=== PATIENT | female | born 1980 | race Caucasian/White ===

== ENCOUNTER 2020-12-01 08:02 | Inpatient (IN) | payer BC ==
[~2020-12-01] VITALS: Ht 162.6 cm; Wt 97.5 kg
[2020-12-01 08:41] LABS: BASOPHILS % (AUTO) 0.3 % (0-1); EOSINOPHILS # (AUTO) 0.1 X10'3 (0-0.9); EOSINOPHILS % (AUTO) 0.9 % (0-6); HEMATOCRIT 45.7 % (35.0-45.0); HEMOGLOBIN 15.4 g/dl (12.0-16.0); LYMPHOCYTES # (AUTO) 1.4 X10'3 (1.1-4.8); LYMPHOCYTES % (AUTO) 18.7 % (21-51); MEAN CORPUSCULAR HEMOGLOBIN 28.6 PG (27.0-31.0); MEAN CORPUSCULAR HGB CONC 33.7 g/dL (33.0-36.5); MEAN PLATELET VOLUME 8.1 FL (7.4-10.4); MONOCYTES # (AUTO) 0.4 X10'3 (0-0.9); MONOCYTES % (AUTO) 5.2 % (2-12); NEUTROPHILS # (AUTO) 5.7 X10'3 (1.8-7.7); NEUTROPHILS % (AUTO) 74.9 % (42-75); PLATELET COUNT 317 X10'3 (140-440); RED BLOOD COUNT 5.37 X10'6 (4.20-5.60); WHITE BLOOD COUNT 7.6 X10'3 (4.5-11.0)
[2020-12-01 08:41] LABS: CLARITY,URINE CLOUDY (Clear); COLOR,URINE YELLOW (Yellow); GLUCOSE, URINE NEGATIVE (Neg); KETONES,URINE NEGATIVE (Neg); LEUKOCYTE ESTERASE ,URINE NEGATIVE (Neg); NITRITES, URINE NEGATIVE (Neg); OCCULT BLOOD,URINE SMALL (Neg); PH,URINE 5.5 (4.8-8.0); PROTEIN,URINE NEGATIVE (Neg)
[2020-12-01 08:42] LABS: URINE HCG NEGATIVE (NEG)
[2020-12-01 08:43] LABS: UA COLLECTION TYPE CLN CATCH MIDSTREAM
[2020-12-01 08:46] LABS: MUCUS STRANDS MANY /LPF (Neg); SQUAMOUS EPITHELIAL CELL,UR MANY /LPF (FEW)
[2020-12-01 08:47] LABS: BACTERIA,URINE 1+ /HPF (Neg); RBC,URINE 0-2 /HPF (0-2)
[2020-12-01 09:05] LABS: ALBUMIN 4.3 G/DL (3.4-5.0); ALKALINE PHOSPHATASE 311 IU/L (46-116); AMYLASE 581 U/L (25-115); ANION GAP 11 (8-16); BILIRUBIN,TOTAL 1.8 MG/DL (0.1-1.0); BLOOD UREA NITROGEN 14 MG/DL (7-18); BUN/CREATININE RATIO 17.5 (6.6-38.0); CALCIUM 9.5 MG/DL (8.5-10.1); CHLORIDE 102 MMOL/L (99-107); GLUCOSE 135 MG/DL (70-104); POTASSIUM 3.7 MMOL/L (3.5-5.1); SODIUM 141 MMOL/L (135-145); TOTAL CARBON DIOXIDE 27.9 MMOL/L (24-32); TOTAL PROTEIN 8.5 G/DL (6.4-8.2); eGFR 80 ML/MIN
[2020-12-01 09:06] LABS: ALANINE AMINOTRANSFERASE 1050 U/L (12-78); ASPARTATE AMINO TRANSFERASE 506 U/L (10-37)
[2020-12-01 09:31] LABS: LIPASE 5561 U/L (73-393)
[2020-12-01] MEDS ORDERED: normal saline 1000ml 1,000 ML IV ONE (10:05)
[2020-12-01] MEDS ORDERED: iohexol 300mg/ml 100ml inj. ONE (10:20)
--- NOTE | 2020-12-01 10:48 | NUR ---
pt to CT
[2020-12-01] MEDS ORDERED: potassium Cl 40MEQ/1/2NS 520ml 520 ML IV PRN ×2 (11:20)
[2020-12-01] MEDS ORDERED: magnesium 2GM in 50ml NS 50 ML IV PRN (11:20)
[2020-12-01] MEDS ORDERED: potassium Cl 20 mEq SR tablet PO PRN ×2 (11:20)
[2020-12-01] MEDS ORDERED: acetaminophen 325mg tablet PO PRN (11:20)
[2020-12-01] MEDS ORDERED: magnesium 4gm in 100ml NS 100 ML IV PRN (11:20)
[2020-12-01] MEDS ORDERED: magnesium Cl slow-release 64mg tablet PO PRN (11:20)
[2020-12-01] MEDS ORDERED: morphine 2 MG/ML inj. syringe IV PRN (11:20)
[2020-12-01] MEDS ORDERED: ondansetron/PF 4mg/2ml inj IV PRN (11:20)
[2020-12-01] MEDS ORDERED: DILT180C49 PO (12:31)
[2020-12-01] MEDS ORDERED: LISI1TAB29 PO (12:31)
[2020-12-01] MEDS: normal saline 1000ml 1,000 ML IV SCH ×2 (14:10→21:09)
[2020-12-01 14:50] VITALS: BP 150/86
[2020-12-01] MEDS ORDERED: OMEP-50 PO (16:38)
--- NOTE | 2020-12-01 18:35 | NUR ---
Patient in room [facility]. I have received report from Neda CARMICHAEL and had the opportunity to ask questions and assume patient care.
--- NOTE | 2020-12-01 19:25 | NUR ---
Patient in room [facility] 357B. I have received report from AMOL RODRIGUEZ FROM and had the opportunity to ask questions and assume patient care. Addendum: 12/01/20 at 1926 by Neda Juárez RN REPORT TAKEN AT 1440 NOT 1926
--- NOTE | 2020-12-01 19:26 | NUR ---
Problems reprioritized. Patient report given, questions answered & plan of care reviewed with AMOL MARIN.
[2020-12-01] MEDS: K and/or MAG REPLACEMENT MC SCH (19:36)
[2020-12-01 20:00] VITALS: BP 123/63
[2020-12-02] VITALS (20 sets, daily range): BP systolic 108–160; BP diastolic 50–93
[2020-12-02 06:15] LABS: BASOPHILS % (AUTO) 0.4 % (0-1); EOSINOPHILS # (AUTO) 0.1 X10'3 (0-0.9); EOSINOPHILS % (AUTO) 2.1 % (0-6); HEMATOCRIT 39.8 % (35.0-45.0); HEMOGLOBIN 13.3 g/dl (12.0-16.0); LYMPHOCYTES # (AUTO) 1.7 X10'3 (1.1-4.8); LYMPHOCYTES % (AUTO) 24.9 % (21-51); MEAN CORPUSCULAR HEMOGLOBIN 28.6 PG (27.0-31.0); MEAN CORPUSCULAR HGB CONC 33.4 g/dL (33.0-36.5); MEAN CORPUSCULAR VOLUME 85.8 FL (78-98); MEAN PLATELET VOLUME 8.3 FL (7.4-10.4); MONOCYTES # (AUTO) 0.4 X10'3 (0-0.9); MONOCYTES % (AUTO) 5.3 % (2-12); NEUTROPHILS # (AUTO) 4.5 X10'3 (1.8-7.7); NEUTROPHILS % (AUTO) 67.3 % (42-75); PLATELET COUNT 247 X10'3 (140-440); RED BLOOD COUNT 4.64 X10'6 (4.20-5.60); RED CELL DISTRIBUTION WIDTH 13.9 % (11.5-14.5); WHITE BLOOD COUNT 6.7 X10'3 (4.5-11.0)
[2020-12-02 06:28] LABS: ALBUMIN 3.4 G/DL (3.4-5.0); ANION GAP 10 (8-16); BLOOD UREA NITROGEN 11 MG/DL (7-18); BUN/CREATININE RATIO 14.3 (6.6-38.0); CALCIUM 8.8 MG/DL (8.5-10.1); CHLORIDE 105 MMOL/L (99-107); CREATININE 0.77 MG/DL (0.40-0.90); GLUCOSE 109 MG/DL (70-104); MAGNESIUM 2.1 MG/DL (1.5-2.4); POTASSIUM 3.7 MMOL/L (3.5-5.1); SODIUM 141 MMOL/L (135-145); eGFR 84 ML/MIN
--- NOTE | 2020-12-02 06:51 | NUR ---
Problems reprioritized. Patient report given, questions answered & plan of care reviewed with Neda CARMICHAEL.
[2020-12-02] MEDS: K and/or MAG REPLACEMENT MC SCH ×2 (08:00→20:00)
[2020-12-02] MEDS: diltiazem CD 180mg cap (once-daily) PO SCH (08:07)
[2020-12-02] MEDS: lisinopril 20mg tablet PO SCH (08:09)
[2020-12-02] MEDS: HYDROchlorothiazide 25mg tablet PO SCH (08:09)
[2020-12-02] MEDS: pantoprazole 40mg Tablet.DR PO SCH (08:10)
--- NOTE | 2020-12-02 09:56 | NUR ---
Dr Jacob met and assessed pt, discussing options based on current and future test results. informed pt of risks, benefits and alternatives of surgery if needed. Pt verbalized understanding and denied questions. hvac technician residential took pt for MRCP @ 0999.
[2020-12-02] MEDS: normal saline 1000ml 1,000 ML IV SCH ×2 (10:35→22:11)
[2020-12-02 12:19] LABS: ALANINE AMINOTRANSFERASE 637 U/L (12-78); ALBUMIN/GLOBULIN RATIO 0.9 (1.1-1.5); ALKALINE PHOSPHATASE 232 IU/L (46-116); ASPARTATE AMINO TRANSFERASE 136 U/L (10-37); BILIRUBIN,DIRECT 0.4 MG/DL (0-0.3); BILIRUBIN,TOTAL 1.1 MG/DL (0.1-1.0); TOTAL PROTEIN 7.1 G/DL (6.4-8.2)
[2020-12-02] MEDS ORDERED: INDOCYANINE GREEN 25 MG/10 ML VIAL IV ONE (16:45)
[2020-12-02] MEDS ORDERED: BUPIVAcaine/PF 2.5 mg/ml (0.25%) 30ml vial ONE (16:55)
[2020-12-02] MEDS ORDERED: fentaNYL/PF 50MCG/1 ML 2ML syringe ONE (17:20)
[2020-12-02] MEDS ORDERED: midazolam 1 mg/ML 2ml injection ONE (17:20)
[2020-12-02] MEDS ORDERED: propofol inj 20 ML IV ONE (17:20)
[2020-12-02] MEDS ORDERED: rocuronium 10mg/ml inj IV ONE (17:20)
[2020-12-02] MEDS ORDERED: ondansetron/PF 4mg/2ml inj ONE (17:22)
[2020-12-02] MEDS ORDERED: dexamethasone sod phosphate 4mg/ml inj. ONE (17:22)
[2020-12-02] MEDS ORDERED: ceFOXitin 1000 MG inj ONE ×2 (17:41)
[2020-12-02] MEDS ORDERED: morphine 4 MG/ML inj SYRINge IV PRN (17:55)
[2020-12-02] MEDS ORDERED: proCHLORperazine 10 MG/2 ml inj IV PRN (17:55)
[2020-12-02] MEDS ORDERED: morphine 2 MG/ML inj. syringe IV PRN (17:55)
[2020-12-02] MEDS ORDERED: ringers solution, lacted 1,000 ML IV SCH (17:55)
[2020-12-02] MEDS ORDERED: meperidine/PF 25mg/ml syringe IV PRN ×2 (17:55)
[2020-12-02] MEDS ORDERED: ondansetron/PF 4mg/2ml inj IV PRN (17:55)
--- NOTE | 2020-12-02 18:27 | NUR ---
Patient in room [facility]. I have received report from AMI CARMICHAEL and had the opportunity to ask questions and assume patient care.
[2020-12-02] MEDS ORDERED: neostigmine methylsulfate 1 MG/ML 10ml vial ONE (18:45)
[2020-12-02] MEDS ORDERED: glycopyrrolate 0.2mg/ml inj ONE (18:45)
--- NOTE | 2020-12-02 19:01 | NUR ---
Problems reprioritized. Patient report given, questions answered & plan of care reviewed with AMOL PORRAS.
[2020-12-02] MEDS ORDERED: bacitracin 15gm ointment TP ONE (19:13)
--- NOTE | 2020-12-02 19:28 | NUR ---
Received from OR via BED IN STABLE CONDITION , accompanied by Anesthesiologist and BI TESTER report given by Anesthesipetra. Addendum: 12/02/20 at 2022 by Zara Murphy RN Amended: Links added.
[2020-12-02] MEDS: meperidine/PF 25mg/ml syringe IV PRN ×4 (20:09→22:01)
--- NOTE | 2020-12-02 20:38 | NUR ---
PATIENT LEFT PACU IN STABLE CONDITION AFTER REPORT GIVEN TO RN. PATIENT TRANSPORTED BY RN. Addendum: 12/02/20 at 2044 by Zara Murphy RN Amended: Links added.
[2020-12-02] MEDS: HYDROcodone/acetaminophen 10/325mg tab PO PRN (22:25)
[2020-12-02] MEDS: ceFAZolin/D5W- 1GM premix 50 ML IV SCH (23:39)
[2020-12-03] VITALS: BP 136/66
[2020-12-03 00:30] VITALS: BP 120/60
[2020-12-03] MEDS: normal saline 1000ml 1,000 ML IV SCH ×2 (03:20→10:11)
[2020-12-03 04:34] VITALS: BP 103/50
--- NOTE | 2020-12-03 06:38 | NUR ---
Patient in room [facility]. I have received report from MIGUEL A CARMICHAEL and had the opportunity to ask questions and assume patient care.
--- NOTE | 2020-12-03 07:01 | NUR ---
Patient in room [facility]. I have received report from AMOL PORRAS and had the opportunity to ask questions and assume patient care.
[2020-12-03 07:08] LABS: BASOPHILS % (AUTO) 0.3 % (0-1); EOSINOPHILS % (AUTO) 0 % (0-6); HEMATOCRIT 42.9 % (35.0-45.0); HEMOGLOBIN 14.5 g/dl (12.0-16.0); LYMPHOCYTES # (AUTO) 1.1 X10'3 (1.1-4.8); LYMPHOCYTES % (AUTO) 8.5 % (21-51); MEAN CORPUSCULAR HEMOGLOBIN 28.9 PG (27.0-31.0); MEAN CORPUSCULAR HGB CONC 33.8 g/dL (33.0-36.5); MEAN CORPUSCULAR VOLUME 85.3 FL (78-98); MEAN PLATELET VOLUME 8.2 FL (7.4-10.4); MONOCYTES # (AUTO) 0.2 X10'3 (0-0.9); MONOCYTES % (AUTO) 1.4 % (2-12); NEUTROPHILS # (AUTO) 11.4 X10'3 (1.8-7.7); NEUTROPHILS % (AUTO) 89.8 % (42-75); PLATELET COUNT 345 X10'3 (140-440); RED BLOOD COUNT 5.03 X10'6 (4.20-5.60); RED CELL DISTRIBUTION WIDTH 13.7 % (11.5-14.5); WHITE BLOOD COUNT 12.6 X10'3 (4.5-11.0)
[2020-12-03 07:28] VITALS: BP 142/71
[2020-12-03] MEDS: pantoprazole 40mg Tablet.DR PO SCH (07:35)
[2020-12-03] MEDS: diltiazem CD 180mg cap (once-daily) PO SCH (07:35)
[2020-12-03] MEDS: HYDROchlorothiazide 25mg tablet PO SCH (07:36)
[2020-12-03] MEDS: lisinopril 20mg tablet PO SCH (07:36)
[2020-12-03] MEDS: HYDROcodone/acetaminophen 10/325mg tab PO PRN (07:37)
[2020-12-03 07:39] LABS: ALANINE AMINOTRANSFERASE 497 U/L (12-78); ALBUMIN/GLOBULIN RATIO 0.9 (1.1-1.5); ALKALINE PHOSPHATASE 240 IU/L (46-116); ANION GAP 13 (8-16); ASPARTATE AMINO TRANSFERASE 73 U/L (10-37); BILIRUBIN,DIRECT 0.3 MG/DL (0-0.3); BLOOD UREA NITROGEN 12 MG/DL (7-18); BUN/CREATININE RATIO 14.8 (6.6-38.0); CALCIUM 9.2 MG/DL (8.5-10.1); CHLORIDE 99 MMOL/L (99-107); CREATININE 0.81 MG/DL (0.40-0.90); GLUCOSE 135 MG/DL (70-104); POTASSIUM 3.9 MMOL/L (3.5-5.1); SODIUM 136 MMOL/L (135-145); TOTAL CARBON DIOXIDE 24.2 MMOL/L (24-32); TOTAL PROTEIN 8.4 G/DL (6.4-8.2); eGFR 79 ML/MIN
[2020-12-03] MEDS: ceFAZolin/D5W- 1GM premix 50 ML IV SCH (07:39)
[2020-12-03 11:00] VITALS: BP 112/68
[2020-12-03 12:28] LABS: LIPASE 223 U/L (73-393)
--- NOTE | 2020-12-03 15:54 | NUR ---
PAGER ID: [phone] MESSAGE: [id number]- Ninoska Turner- Dr. Liu notified patient tolerated full liquid and lipase is 223. He ok for her to DC. She doesn't have pain med for dc and states she will need it. She was given [place] 1 tab this morning. Robert/Italia [id number]
--- NOTE | 2020-12-03 15:57 | NUR ---
Return call from Dr. Cowart that "pain meds need to be from surgery." Dr. Liu notified and states he will call in.
--- NOTE | 2020-12-03 15:58 | NUR ---
Call back from Dr. Liu again that his office is closed and he will need to write patient out a prescription but is in trauma at [facility] and he will be in approx 1-2 hours.
--- NOTE | 2020-12-03 18:00 | NUR ---
Pt discharge home instable condition. Discharge instructions given to pt. IV removed and dressing changed prior discharge. Pt was escorted to main lobby on w/c, left the hospital via private vehicle accompanied by family member.
== END 2020-12-03 17:42 | disposition home or self-care (01) | DRG 417 ==
LOC: ER 08:03 → ED HOLD 11:18 → SUR 3N 14:50
PROVIDERS: ADMIT Internal Medicine; ATTEND Internal Medicine
PROC: BW211ZZ Computerized Tomography (CT Scan) of Abdomen and Pelvis using Low Osmolar Contrast (ICD-10-PCS; 2020-12-01)
PROC: 0WQF0ZZ Repair Abdominal Wall, Open Approach (ICD-10-PCS; 2020-12-02)
PROC: 8E0W4CZ Robotic Assisted Procedure of Trunk Region, Percutaneous Endoscopic Approach (ICD-10-PCS; 2020-12-02)
PROC: 0FT44ZZ Resection of Gallbladder, Percutaneous Endoscopic Approach (ICD-10-PCS; principal; 2020-12-02 17:24)
DX: K80.67 Calculus of gallbladder and bile duct with acute and chronic cholecystitis with obstruction (principal); K85.10 Biliary acute pancreatitis without necrosis or infection; I10 Essential (primary) hypertension; K21.9 Gastro-esophageal reflux disease without esophagitis; K42.9 Umbilical hernia without obstruction or gangrene; K82.8 Other specified diseases of gallbladder; Z20.822 Contact with and (suspected) exposure to COVID-19
CPT/HCPCS: 96360; 99285; Z7506; Z7508; 36415; 74177; 74181; 76700; 80048; 80053; 80076; 81001; 81025; 82150; 82948; 83690; 83735; 85025; 87081; 87635; 93005; A4215; A4618; A6449; A7000; G0378; J0690; J0694; J1100; J2175; J2250; J2270; J2405; J2704; J2710; J3010; J3490; J7030; J7120; Q9967

== ENCOUNTER 2021-02-16 08:35 | Outpatient (CLI) | payer BC ==
[~2021-02-16 08:35] MED LIST: DILT180C49 PO; LISI1TAB29 PO; OMEP-50 PO
== END 2021-02-16 23:59 | disposition home or self-care (01) ==
LOC: 64 CT 08:35
PROVIDERS: ATTEND Surgery
DX: K43.9 Ventral hernia without obstruction or gangrene (principal); N83.202 Unspecified ovarian cyst, left side; N83.201 Unspecified ovarian cyst, right side; K76.0 Fatty (change of) liver, not elsewhere classified; M16.0 Bilateral primary osteoarthritis of hip; M43.17 Spondylolisthesis, lumbosacral region; M47.816 Spondylosis without myelopathy or radiculopathy, lumbar region; M25.78 Osteophyte, vertebrae
CPT/HCPCS: 74176

== ENCOUNTER 2021-02-25 10:50 | Day surgery (SDC) | payer BC ==
[2021-02-23 10:09] LABS: BASOPHILS # (AUTO) 0.1 X10'3 (0-0.2); BASOPHILS % (AUTO) 0.7 % (0-1); EOSINOPHILS # (AUTO) 0.2 X10'3 (0-0.9); EOSINOPHILS % (AUTO) 2.4 % (0-6); LYMPHOCYTES # (AUTO) 2.2 X10'3 (1.1-4.8); LYMPHOCYTES % (AUTO) 26.2 % (21-51); MEAN CORPUSCULAR HEMOGLOBIN 28.7 PG (27.0-31.0); MEAN CORPUSCULAR VOLUME 84.2 FL (78-98); MEAN PLATELET VOLUME 7.7 FL (7.4-10.4); MONOCYTES # (AUTO) 0.4 X10'3 (0-0.9); MONOCYTES % (AUTO) 5.2 % (2-12); NEUTROPHILS # (AUTO) 5.5 X10'3 (1.8-7.7); NEUTROPHILS % (AUTO) 65.5 % (42-75); PRE OP HEMATOCRIT 44.4 % (35.0-45.0); PRE OP HEMOGLOBIN 15.1 g/dL (12.0-16.0); PRE OP PLATELET COUNT 327 X10'3 (140-440); RED BLOOD COUNT 5.27 X10'6 (4.20-5.60); RED CELL DISTRIBUTION WIDTH 13.7 % (11.5-14.5)
[2021-02-23 10:10] LABS: CLARITY,URINE SLIGHTLY CLOUDY (Clear); COLOR,URINE YELLOW (Yellow); GLUCOSE, URINE NEGATIVE (Neg); KETONES,URINE NEGATIVE (Neg); LEUKOCYTE ESTERASE ,URINE NEGATIVE (Neg); NITRITES, URINE NEGATIVE (Neg); OCCULT BLOOD,URINE SMALL (Neg); PROTEIN,URINE TRACE mg/dl (Neg); UROBILINOGEN,URINE 0.2 E.U/dL (0.2-1.0)
[2021-02-23 10:15] LABS: UA COLLECTION TYPE CLN CATCH MIDSTREAM
[2021-02-23 10:18] LABS: MUCUS STRANDS MANY /LPF (Neg)
[2021-02-23 10:19] LABS: BACTERIA,URINE FEW /HPF (Neg); RBC,URINE 0-2 /HPF (0-2); WBC,URINE 0-4 /HPF (0-4)
[2021-02-23 10:20] LABS: SQUAMOUS EPITHELIAL CELL,UR MODERATE /LPF (FEW)
[2021-02-23 10:23] LABS: ALBUMIN 4.1 G/DL (3.4-5.0); ALKALINE PHOSPHATASE 94 IU/L (46-116); BLOOD UREA NITROGEN 12 MG/DL (7-18); BUN/CREATININE RATIO 16.9 (6.6-38.0); CALCIUM 8.8 MG/DL (8.5-10.1); CHLORIDE 102 MMOL/L (99-107); CREATININE 0.71 MG/DL (0.40-0.90); PRE OP ALT 39 U/L (30-65); PRE OP ANION GAP 9 (8-16); PRE OP AST 15 U/L (10-37); PRE OP BILIRUB, TOTAL 0.7 MG/DL (0.0-1.0); PRE OP GLUCOSE 120 MG/DL (70-104); PRE OP SODIUM 140 MMOL/L (135-145); TOTAL CARBON DIOXIDE 28.7 MMOL/L (24-32); TOTAL PROTEIN 8.4 G/DL (6.4-8.2); eGFR > 90 ML/MIN
[2021-02-23 10:49] LABS: HCG SERUM QL NEGATIVE
[2021-02-25] VITALS (20 sets, daily range): BP systolic 103–148; BP diastolic 66–96
[~2021-02-25] VITALS: Ht 162.6 cm; Wt 102.1 kg
[~2021-02-25 10:50] MED LIST changes: -OMEP-50 PO; +cefazolin/dext.iso 2gm/100ml IV ONE
[2021-02-25] MEDS ORDERED: famotidine 20mg tablet PO ONE (11:52)
[2021-02-25] MEDS: ringers solution, lacted 1,000 ML IV SCH ×3 (12:05→23:29)
[2021-02-25] MEDS ORDERED: BUPIVAcaine 0.5% inj/PF 30 ML ONE (12:50)
[2021-02-25 13:57] LABS: PARTIAL THROMBOPLASTIN TIME 25 SECONDS (22-32)
[2021-02-25] MEDS ORDERED: BUPIVAcaine/PF 2.5mg/ml (0.25%) 10ml vial ONE (14:39)
[2021-02-25] MEDS ORDERED: BUPIVACAINE liposomal/PF 13.3 MG/ML vial IM ONE (14:39)
[2021-02-25] MEDS ORDERED: midazolam 1 mg/ML 2ml injection ONE (14:41)
[2021-02-25] MEDS ORDERED: fentaNYL /PF 50mcg/ml 5ml ampule ONE (14:42)
[2021-02-25] MEDS ORDERED: meperidine/PF 25mg/ml syringe IV PRN ×3 (14:50)
[2021-02-25] MEDS ORDERED: proCHLORperazine 10 MG/2 ml inj IV PRN ×2 (14:50→22:20)
[2021-02-25] MEDS ORDERED: morphine 2 MG/ML inj. syringe IV PRN (14:50)
[2021-02-25] MEDS ORDERED: ringers solution, lacted 1,000 ML IV SCH (14:50)
[2021-02-25] MEDS ORDERED: ondansetron/PF 4mg/2ml inj IV PRN ×2 (14:50→17:50)
[2021-02-25] MEDS ORDERED: sevoflurane 250ml liquid IH ONE (15:20)
[2021-02-25] MEDS ORDERED: acetaminophen 1000 MG/100ml vial IV ONE (15:20)
[2021-02-25] MEDS ORDERED: rocuronium 10mg/ml inj IV ONE ×2 (15:20→17:01)
[2021-02-25] MEDS ORDERED: glycopyrrolate 0.2mg/ml inj ONE (17:01)
[2021-02-25] MEDS ORDERED: LIDOcaine 1%/PF 5ML 10 MG/ML VIAL ONE (17:01)
[2021-02-25] MEDS ORDERED: propofol inj 20 ML IV ONE (17:01)
[2021-02-25] MEDS ORDERED: dexamethasone sod phosphate 4mg/ml inj. ONE (17:01)
[2021-02-25] MEDS ORDERED: neostigmine methylsulfate 1 MG/ML 10ml vial ONE (17:01)
[2021-02-25] MEDS ORDERED: ondansetron/PF 4mg/2ml inj ONE (17:01)
[2021-02-25] MEDS ORDERED: sugammadex 200mg/2ml injection IV ONE (17:40)
--- NOTE | 2021-02-25 17:41 | NUR ---
Received from OR via SURGICAL BED , accompanied by Anesthesiologist ROSELINE and report given by Anesthesiolgist. PATIENT WITH 20GPIV IN RIGHT HAND RUNNING LR AT 100. ABDOMINAL BINDER DONNED. NICOLASA DRAIN PRESENT WITH SERO SANG DRAINAGE PRESENT. ISLAND DRESSING PRESENT AND IS CDI. Addendum: 02/25/21 at 1759 by Sarabjit Flores RN, RN Amended: Links added.
[2021-02-25] MEDS: morphine 4 MG/ML inj SYRINge IV PRN ×2 (18:36→18:47)
--- NOTE | 2021-02-25 19:01 | NUR ---
PATIENT HAS MET ALL CRITERIA FOR TRANSFER TO THE SURGICAL/TY/PCU/ORTHO/ICU FLOOR. VSS. DRESSINGS INTACT. BED LOW, CALL LIGHT PRESENT AND 2 RAILS UP. RN PRESENT TO ACCEPT CARE OF PATIENT AND REPORT HAS BEEN CALLED. ALL QUESTIONS ANSWERED TO ACCEPTING AMOL QUEZADA. PAIN DOWN TO A -10/30 TO ABDOMEN. Addendum: 02/25/21 at 1931 by Sarabjit Flores RN, RN Amended: Links added.
--- NOTE | 2021-02-25 19:15 | NUR ---
received report from AMOL Whipple. Patient was transported up to room in a hospital bed. Patient drowsy but alert. VSS stable. Patients belongings are at the bedside
[2021-02-25] MEDS: gabapentin 400mg capsule PO SCH (23:53)
[2021-02-25] MEDS: HYDROcodone/acetaminophen 10/325mg tab PO PRN (23:53)
[2021-02-25] MEDS: potassium CL 20mEq in D5-1/2NS 1,000 ML IV SCH (23:54)
[2021-02-25] MEDS: ceFAZolin inj. 1,000 MG in dextrose 5%-water 50ml 50 ML IV SCH (23:57)
[2021-02-26 00:09] VITALS: BP 119/61
[2021-02-26] MEDS: potassium CL 20mEq in D5-1/2NS 1,000 ML IV SCH ×3 (01:50→17:30)
[2021-02-26 04:15] VITALS: BP 109/64
[2021-02-26 05:40] LABS: BASOPHILS % (AUTO) 0.1 % (0-1); EOSINOPHILS % (AUTO) 0 % (0-6); HEMATOCRIT 39.6 % (35.0-45.0); HEMOGLOBIN 13.5 g/dl (12.0-16.0); LYMPHOCYTES # (AUTO) 0.9 X10'3 (1.1-4.8); LYMPHOCYTES % (AUTO) 7.1 % (21-51); MEAN CORPUSCULAR HEMOGLOBIN 28.5 PG (27.0-31.0); MEAN CORPUSCULAR HGB CONC 34.2 g/dL (33.0-36.5); MEAN CORPUSCULAR VOLUME 83.5 FL (78-98); MEAN PLATELET VOLUME 8.1 FL (7.4-10.4); MONOCYTES # (AUTO) 0.3 X10'3 (0-0.9); NEUTROPHILS % (AUTO) 90.8 % (42-75); PLATELET COUNT 309 X10'3 (140-440); RED BLOOD COUNT 4.74 X10'6 (4.20-5.60); RED CELL DISTRIBUTION WIDTH 13.9 % (11.5-14.5); WHITE BLOOD COUNT 13.2 X10'3 (4.5-11.0)
[2021-02-26 07:00] VITALS: BP 109/61
[2021-02-26] MEDS: gabapentin 400mg capsule PO SCH ×2 (09:48→15:10)
[2021-02-26] MEDS: lisinopril 20mg tablet PO SCH (09:49)
[2021-02-26] MEDS: HYDROchlorothiazide 25mg tablet PO SCH (09:49)
[2021-02-26] MEDS: ceFAZolin inj. 1,000 MG in dextrose 5%-water 50ml 50 ML IV SCH ×2 (09:51→15:10)
[2021-02-26] MEDS: HYDROcodone/acetaminophen 10/325mg tab PO PRN ×2 (09:51→20:57)
[2021-02-26] MEDS: diltiazem CD 180mg cap (once-daily) PO SCH (11:33)
[2021-02-26 12:00] VITALS: BP 120/66
[2021-02-26 18:00] VITALS: BP 112/55
--- NOTE | 2021-02-26 18:13 | NUR ---
Problems reprioritized. Patient report given, questions answered & plan of care reviewed with AMOL Saravia.
--- NOTE | 2021-02-26 18:17 | NUR ---
I have received report from helena Patel and had the opportunity to ask questions and assume patient care.
[2021-02-27] MEDS: gabapentin 400mg capsule PO SCH ×4 (00:05→18:54)
[2021-02-27 00:51] VITALS: BP 108/49
[2021-02-27] MEDS: HYDROcodone/acetaminophen 10/325mg tab PO PRN ×2 (04:10→11:24)
--- NOTE | 2021-02-27 06:40 | NUR ---
Patient has been educated on the importance of getting up and walking and has acknowledge the importance. Patient has still not gotten up to walk the unit. Passed the information on to the day RN
--- NOTE | 2021-02-27 06:40 | NUR ---
Problems reprioritized. Patient report given, questions answered & plan of care reviewed with AMOL Ross.
[2021-02-27 07:22] LABS: BASOPHILS % (AUTO) 0.3 % (0-1); EOSINOPHILS # (AUTO) 0.1 X10'3 (0-0.9); HEMATOCRIT 39.3 % (35.0-45.0); LYMPHOCYTES # (AUTO) 2.8 X10'3 (1.1-4.8); MEAN CORPUSCULAR HEMOGLOBIN 28.2 PG (27.0-31.0); MEAN CORPUSCULAR VOLUME 85.3 FL (78-98); MEAN PLATELET VOLUME 8.1 FL (7.4-10.4); MONOCYTES # (AUTO) 0.7 X10'3 (0-0.9); NEUTROPHILS % (AUTO) 68.7 % (42-75); PLATELET COUNT 298 X10'3 (140-440); RED BLOOD COUNT 4.61 X10'6 (4.20-5.60); WHITE BLOOD COUNT 11.6 X10'3 (4.5-11.0)
[2021-02-27 07:26] VITALS: BP 117/66
[2021-02-27] MEDS: HYDROchlorothiazide 25mg tablet PO SCH (11:20)
[2021-02-27] MEDS: lisinopril 20mg tablet PO SCH (11:20)
[2021-02-27] MEDS: diltiazem CD 180mg cap (once-daily) PO SCH (11:21)
[2021-02-27 12:14] VITALS: BP 111/65
[2021-02-27] MEDS ORDERED: mag hydrox/Alum hydrox/simeth 30ml oral suspension PO PRN (12:35)
[2021-02-27] MEDS: acetaminophen 325mg tablet PO PRN (17:09)
[2021-02-27 18:00] VITALS: BP 142/74
[2021-02-28] VITALS: BP 106/60
[2021-02-28] MEDS: acetaminophen 325mg tablet PO PRN ×2 (00:51→08:30)
--- NOTE | 2021-02-28 06:30 | NUR ---
Patient in room . I have received report from Vandana CARMICHAEL and had the opportunity to ask questions and assume patient care.
[2021-02-28 06:35] LABS: BASOPHILS # (AUTO) 0.1 X10'3 (0-0.2); BASOPHILS % (AUTO) 0.7 % (0-1); EOSINOPHILS # (AUTO) 0.3 X10'3 (0-0.9); HEMATOCRIT 39.7 % (35.0-45.0); HEMOGLOBIN 13.3 g/dl (12.0-16.0); LYMPHOCYTES # (AUTO) 2.7 X10'3 (1.1-4.8); LYMPHOCYTES % (AUTO) 31.4 % (21-51); MEAN CORPUSCULAR HEMOGLOBIN 28.4 PG (27.0-31.0); MEAN CORPUSCULAR HGB CONC 33.6 g/dL (33.0-36.5); MEAN CORPUSCULAR VOLUME 84.6 FL (78-98); MEAN PLATELET VOLUME 7.7 FL (7.4-10.4); MONOCYTES # (AUTO) 0.6 X10'3 (0-0.9); MONOCYTES % (AUTO) 7.1 % (2-12); NEUTROPHILS # (AUTO) 4.9 X10'3 (1.8-7.7); NEUTROPHILS % (AUTO) 57.8 % (42-75); PLATELET COUNT 305 X10'3 (140-440); RED BLOOD COUNT 4.69 X10'6 (4.20-5.60); RED CELL DISTRIBUTION WIDTH 13.8 % (11.5-14.5); WHITE BLOOD COUNT 8.6 X10'3 (4.5-11.0)
--- NOTE | 2021-02-28 06:37 | NUR ---
Gave report to Sonia CARMICHAEL.
[2021-02-28 07:00] VITALS: BP 130/64
[2021-02-28] MEDS: HYDROchlorothiazide 25mg tablet PO SCH (08:28)
[2021-02-28] MEDS: gabapentin 400mg capsule PO SCH (08:28)
[2021-02-28] MEDS: lisinopril 20mg tablet PO SCH (08:29)
[2021-02-28] MEDS: diltiazem CD 180mg cap (once-daily) PO SCH (08:29)
[2021-02-28 11:14] VITALS: BP 145/82
--- NOTE | 2021-02-28 12:04 | NUR ---
Pt was educated on follow-up with Dr. Liu on 03/02, NICOLASA drain care, activity, medications, and worsening symptoms. IV was removed and canula was intact. Medications were to be called in by Dr. Liu's office. Took patient down to her ride.
== END 2021-02-28 11:50 | disposition home or self-care (01) ==
LOC: PAS 10:50 → SUR 3N 17:59 → PAS 02-28 11:50
PROVIDERS: ATTEND Surgery
DX: K43.2 Incisional hernia without obstruction or gangrene (principal); I10 Essential (primary) hypertension; F41.9 Anxiety disorder, unspecified; E66.9 Obesity, unspecified; Z68.37 Body mass index [BMI] 37.0-37.9, adult; Z98.890 Other specified postprocedural states; Z79.899 Other long term (current) drug therapy; Z90.49 Acquired absence of other specified parts of digestive tract; Z79.01 Long term (current) use of anticoagulants; Z83.3 Family history of diabetes mellitus; Z82.3 Family history of stroke; Z82.49 Family history of ischemic heart disease and other diseases of the circulatory system; Z82.61 Family history of arthritis
CPT/HCPCS: 36415; 49560; 64488; 80053; 81001; 84703; 85025; 85610; 85730; C1758; C9290; C9399; J0131; J0690; J0780; J1100; J2175; J2250; J2270; J2405; J2704; J2710; J3010; J3480; J3490; J7060; J7120; Z7506; Z7508; Z7512; A4215; A4618; A7000; G0378